=== PATIENT | female | born 2000 | race Caucasian/White ===

== ENCOUNTER 2020-05-01 18:06 | Emergency (ER) | payer BC, OTHER | END 2020-05-01 20:10 | disposition home or self-care (01) | LOC: ER1 18:06 | DX: O9A.212 Injury, poisoning and certain other consequences of external causes complicating pregnancy, second trimester (principal); S93.401A Sprain of unspecified ligament of right ankle, initial encounter; K21.9 Gastro-esophageal reflux disease without esophagitis; Z3A.14 14 weeks gestation of pregnancy; W19.XXXA Unspecified fall, initial encounter; Y92.009 Unspecified place in unspecified non-institutional (private) residence as the place of occurrence of the external cause | CPT/HCPCS: 73590; 73630; 99283 ==

== ENCOUNTER 2020-06-16 11:49 | Outpatient (CLI) | payer BC, OTHER | END 2020-06-16 13:07 | disposition home or self-care (01) | LOC: GENOP 11:49 | DX: O36.8120 Decreased fetal movements, second trimester, not applicable or unspecified (principal); Z3A.21 21 weeks gestation of pregnancy | CPT/HCPCS: 81001; G0463 ==

== ENCOUNTER → 2021-07-14 | Outpatient (CLI) | payer OTHER | LOC: US 09:53 | DX: R10.31 Right lower quadrant pain (principal); R10.30 Lower abdominal pain, unspecified; R10.2 Pelvic and perineal pain | CPT/HCPCS: 76856 ==